=== PATIENT | female | born 1955 | race American Indian/Alaskan Native ===

== ENCOUNTER 2017-05-25 13:27 | Emergency (ER) | payer MEDICAID, OTHER ==
[2017-05-25 13:31] VITALS: BP 119/58
[2017-05-25 14:09] LABS: CHLORIDE,CL 102 mmol/L (101-111); SODIUM,NA 138 mmol/L (135-145)
--- NOTE | 2017-05-25 14:36 | EDM.PDOC ---
ED HPI GENERAL MEDICAL PROBLEM - General Chief Complaint: Chest Pain Stated Complaint: IN BY AMBULANCE Time Seen by Provider: 05/25/17 14:25 Source of Information: Reports: Patient History Limitations: Reports: No Limitations - History of Present Illness INITIAL COMMENTS - FREE TEXT/NARRATIVE: Patient presents to the ER via EMS from [facility] with complaints of chest pain, palpitations, shortness of breath, and lightheadedness. Patient states she first noticed the palpitations on Wednesday05/21/2017. She reports that she has had similar heart palpitations in the past "couple years" but they typically go away. She states that she has been lightheaded on and off since Wednesday. This morning she was more short of breath, prompting her to seek medical care. Onset: Other Onset Date: 05/21/17 Location: Reports: Chest Improves with: Reports: None Worsens with: Reports: Other (activity) Context: Reports: Activity Associated Symptoms: Reports: Shortness of Breath, Other (ligthheadedness) - Related Data Allergies Allergy/AdvReac Type Severity Reaction Status Date / Time latex Allergy Rash Verified 05/25/17 13:27 Home Meds: Home Meds metFORMIN HCl [Metformin HCl] 500 mg PO BID 02/28/16 [History] Aspirin [Halfprin] 81 mg PO ONETIME 05/25/17 [History] Calcium Citrate/Vitamin D3 [Calcium Citrate + D] 1 tab PO BIDMEALS 05/25/17 [ History] Glimepiride [Glimepiride] 4 mg PO DAILY 05/25/17 [History] Insulin Detemir [Levemir Flextouch] 25 units SQ QAM 05/25/17 [History] Loratadine 10 mg PO 05/25/17 [History] Multivit-Min/Iron Fum/Folic AC [Jysmy-Nymyhvd-Tgfatsbr Tablet] 1 tab PO DAILY [History] Omeprazole [Omeprazole] 20 mg PO DAILY 05/25/17 [History] Past Medical History Respiratory History: Reports: Other (See Below) Other Respiratory History: pulmonary hypertension Gastrointestinal History: Reports: GERD Musculoskeletal History: Reports: Arthritis Endocrine/Metabolic History: Reports: Diabetes, Type I Other Dermatologic History: scleroderma Social & Family History - Family History Family Medical History: Noncontributory - Tobacco Use Smoking Status *Q: Current Some Day Smoker Years of Tobacco use: 20 Packs/Tins Daily: 0.5 - Caffeine Use Caffeine Use: Reports: Coffee - Recreational Drug Use Recreational Drug Use: Yes Recreational Drug Type: Reports: Marijuana/Hashish Recreational Drug Use Frequency: Monthly - Living Situation & Occupation Living situation: Reports: with Family ED ROS GENERAL - Review of Systems Review Of Systems: ROS reveals no pertinent complaints other than HPI. ED EXAM, GENERAL - Physical Exam Exam: See Below Exam Limited By: No Limitations General Appearance: Alert, WD/WN, Mild Distress Head: Atraumatic, Normocephalic Neck: Normal Inspection, Supple, Non-Tender, Full Range of Motion Respiratory/Chest: No Respiratory Distress, Lungs Clear, Normal Breath Sounds, No Accessory Muscle Use, Chest Non-Tender Cardiovascular: Normal Peripheral Pulses, No Edema, No Gallop, No JVD, No Murmur , No Rub, Other (regularly irregular) GI/Abdominal: Normal Bowel Sounds, Soft, Non-Tender, No Organomegaly, No Distention, No Abnormal Bruit, No Mass (Female) Exam: Deferred Rectal (Female) Exam: Deferred Back Exam: Normal Inspection, Full Range of Motion, NT Extremities: Normal Inspection, Normal Range of Motion, Non-Tender, Normal Capillary Refill, No Pedal Edema Neurological: Alert, Oriented, CN II-XII Intact, Normal Cognition, Normal Gait, Normal Reflexes, No Motor/Sensory Deficits Psychiatric: Normal Affect, Normal Mood Skin Exam: Warm, Dry, Intact, Normal Color, No Rash Lymphatic: No Adenopathy Course - Vital Signs Last Recorded V/S: Last Vital Signs Temp 36.4 C 05/25/17 13:28 Pulse 62 05/25/17 13:28 Resp 12 05/25/17 13:28 BP 119/58 L 05/25/17 13:28 Pulse Ox 100 05/25/17 13:28 - Orders/Labs/Meds Orders: Active Orders 24 hr Category Date Time Status EKG Documentation Completion [RC] URGENT Care 05/25/17 13:30 Active Labs: Laboratory Tests 05/25/17 05/25/17 05/25/17 Range/Units 13:40 13:40 13:40 WBC 6.8 (5.0-10.0) 10^3/uL RBC 4.05 L (4.2-5.4) 10^6/uL Hgb 12.5 (12.0-16.0) g/dL Hct 38.2 (37.0-47.0) % MCV 94.3 (80-100) fL MCH 30.9 (27.0-34.0) pg MCHC 32.7 L (33.0-35.0) g/dL Plt Count 271 (150-450) 10^3/uL Neut % (Auto) 54.4 (42.2-75.2) % Lymph % (Auto) 33.5 (20.5-50.1) % Rains % (Auto) 8.3 H (2-8) % Eos % (Auto) 3.1 H (1.0-3.0) % Baso % (Auto) 0.7 (0.0-1.0) % D-Dimer, Quantitative < 100 (0-400) ng/mL Sodium 138 (135-145) mmol/L Potassium 4.1 (3.6-5.0) mmol/L Chloride 102 (101-111) mmol/L Carbon Dioxide 25.0 (21.0-31.0) mmol/L Anion Gap 15.1 BUN 12 (7-18) mg/dL Creatinine 0.7 (0.6-1.3) mg/dL Est Cr Clr Drug Dosing 68.44 mL/min Estimated GFR (MDRD) > 60 BUN/Creatinine Ratio 17.14 Glucose 320 H (74-105) mg/dL Calcium 9.1 (8.4-10.2) mg/dl Total Bilirubin 0.4 (0.2-1.0) mg/dL AST 22 (10-42) IU/L ALT 24 (10-60) IU/L Alkaline Phosphatase 82 (42-121) IU/L Troponin I < 0.02 (0.00-0.02) ng/ml Total Protein 7.1 (6.7-8.2) g/dl Albumin 4.3 (3.2-5.5) g/dl Globulin 2.8 Albumin/Globulin Ratio 1.54 - Re-Assessments/Exams Free Text/Narrative Re-Assessment/Exam: 05/25/17 14:59 Discussed the examination, EKG and lab results with Dr. Stanley (Cardiology with [facility] in [place]). Dr. Stanley advised to get a D-dimer level (if positive a CTA, if negative the patient should be seen by cardiology as an outpatient). The patient does have a history (according to the [facility] Records of Supraventricular Bigeminy). Departure - Departure Time of Disposition: 16:04 Disposition: Home, Self-Care 01 Condition: Fair Clinical Impression: Supraventricular bigeminy Instructions: Nonspecific Chest Pain, [id number] Forms: ED Department Discharge Care Plan Goals: Discussed the examination, lab, EKG and x-ray results with Dr. Stanley ( Cardiology with [facility] in [place]). Dr. Stanley advised to have the patient follow-up with cardiology on an outpatient basis as soon as possible. Dr. Kirkland ([facility]) was advised of the consult results during the patient's visit in the ED. If the patient has any additional symptoms or concerns, the patient should either return to the [facility] or return to the emergency department. - My Orders Last 24 Hours: My Active Orders 05/25/17 13:30 EKG Documentation Completion [RC] URGENT - Assessment/Plan Last 24 Hours: My Active Orders 05/25/17 13:30 EKG Documentation Completion [RC] URGENT
--- NOTE | 2017-05-26 16:33 | EKG ---
05/25/2017 - JOSÉ BENJAMIN I reviewed the EKG and agree with the machine's reading. [facility] /[id number]
== END 2017-05-25 16:20 | disposition home or self-care (01) ==
LOC: DL.ED 13:27
DX: I49.3 Ventricular premature depolarization (principal); K21.9 Gastro-esophageal reflux disease without esophagitis; M19.90 Unspecified osteoarthritis, unspecified site; E10.9 Type 1 diabetes mellitus without complications; F17.210 Nicotine dependence, cigarettes, uncomplicated; Z91.040 Latex allergy status; Z79.899 Other long term (current) drug therapy
CPT/HCPCS: 36415; 71010; 80053; 84484; 85025; 85379; 93005; 99285

== ENCOUNTER 2017-12-09 14:26 | Emergency (ER) | payer MEDICAID, OTHER ==
[2017-12-09 15:19] VITALS: BP 133/71
--- NOTE | 2017-12-09 15:26 | CR ---
Clinical history: 62-year-old female with swollen, discolored right small (pinky) toe. Interpretation: *Pronounced soft tissue swelling lateral aspect of the foot (fifth toe) and acute sli jose like, minimally displaced avulsion fracture off of the corner, distal end, of the proximal phalan x, right small toe. No sign of other right forefoot fracture or dislocation. No foreign bodies.
[2017-12-09] MEDS ORDERED: Acetaminophen/HYDROcodone 325-10 MG Tab PO ONE (15:48)
--- NOTE | 2017-12-09 16:14 | EDM.PDOC ---
Scribed by Lesly Aguilera 12/09/17 [id number] for Chuck Toro MD ED HPI GENERAL MEDICAL PROBLEM - General Chief Complaint: Lower Extremity Injury/Pain Stated Complaint: possible toe fx 12/09/17. [phone] Time Seen by Provider: 12/09/17 15:30 Source of Information: Reports: Patient, RN, RN Notes Reviewed History Limitations: Reports: No Limitations - History of Present Illness INITIAL COMMENTS - FREE TEXT/NARRATIVE: Patient presents with complaint of right 5th toe pain sustained this morning when she accidentally kicked the leg of her sofa. Denies any other injury. Onset: Today Location: Reports: Lower Extremity, Right Quality: Reports: Ache Severity: Severe Improves with: Reports: None Worsens with: Reports: None Associated Symptoms: Reports: No Other Symptoms Feet Pain Score (Numeric/FACES): 10 - Related Data Allergies Allergy/AdvReac Type Severity Reaction Status Date / Time latex Allergy Rash Verified 12/09/17 15:19 lactose AdvReac Mild not given Verified 12/09/17 15:19 Home Meds: Home Meds metFORMIN HCl [Metformin HCl] 500 mg PO TID 02/28/16 [History] Aspirin [Halfprin] 81 mg PO ONETIME 05/25/17 [History] Insulin Detemir [Levemir Flextouch] 40 units SQ QAM 05/25/17 [History] Loratadine 10 mg PO DAILY PRN 05/25/17 [History] Multivit-Min/Iron Fum/Folic AC [Xojax-Wokafrh-Owpwityu Tablet] 1 tab PO DAILY [History] Past Medical History HEENT History: Reports: None Cardiovascular History: Reports: None Respiratory History: Reports: Other (See Below) Other Respiratory History: pulmonary hypertension Gastrointestinal History: Reports: GERD Genitourinary History: Reports: None NUTRITION SERVICES MANAGER History: Reports: None Musculoskeletal History: Reports: Arthritis Neurological History: Reports: None Psychiatric History: Reports: None Endocrine/Metabolic History: Reports: Diabetes, Type II Hematologic History: Reports: None Immunologic History: Reports: None Oncologic (Cancer) History: Reports: None Other Dermatologic History: scleroderma, Social & Family History - Family History Family Medical History: Noncontributory - Tobacco Use Smoking Status *Q: Never Smoker Years of Tobacco use: 20 Packs/Tins Daily: 0.5 Second Hand Smoke Exposure: No - Caffeine Use Caffeine Use: Reports: Coffee, Tea - Recreational Drug Use Recreational Drug Use: No Recreational Drug Type: Reports: Marijuana/Hashish Recreational Drug Use Frequency: Monthly - Living Situation & Occupation Living situation: Reports: with Family Review of Systems - Review of Systems Review Of Systems: ROS reveals no pertinent complaints other than HPI. ED EXAM, GENERAL - Physical Exam Exam: See Below Exam Limited By: No Limitations General Appearance: Alert, WD/WN, No Apparent Distress Respiratory/Chest: No Respiratory Distress Cardiovascular: Normal Peripheral Pulses, Regular Rate, Rhythm, No Edema, No Gallop, No JVD, No Murmur, No Rub Back Exam: Normal Inspection, Full Range of Motion, NT Extremities: Other (right fifth toe swollen with diffuse generalized bruising, acutely tender to palpation. Skin is intact. ) Neurological: Alert, Oriented, CN II-XII Intact, Normal Cognition, Normal Gait, Normal Reflexes, No Motor/Sensory Deficits Psychiatric: Normal Affect, Normal Mood Course - Vital Signs Last Recorded V/S: Last Vital Signs Temp 35.9 C 12/09/17 15:16 Pulse 68 12/09/17 15:16 Resp 16 12/09/17 15:16 BP 133/71 12/09/17 15:16 Pulse Ox 99 12/09/17 15:16 - Orders/Labs/Meds Meds: Medications Discontinued Medications Generic Name Dose Route Start Last Admin Trade Name Jeffrey PRN Reason Stop Dose Admin Hydrocodone Bitart/Acetaminophen 1 tab 12/09/17 15:48 12/09/17 15:52 [place] 325-10 Mg PO 12/09/17 15:49 1 tab ONETIME ONE Administration - Radiology Interpretation Free Text/Narrative:: X-ray right fifth toe: Pronounced soft tissue swelling lateral aspect of the foot (fifth toe) and acute sliver like minimally displaced avulsion fracture off of the corner, distal end, of the proximal phalanx, right small toe. See rad report. Departure - Departure Time of Disposition: 15:48 Disposition: Home, Self-Care 01 Condition: Good Clinical Impression: Fracture of fifth toe, right, closed Qualifiers: Encounter type: initial encounter Qualified Code(s): S92.501A - Displaced unspecified fracture of right lesser toe(s), initial encounter for closed fracture - Discharge Information Instructions: Toe Fracture, Lnnp-st-Eynp Forms: ED Department Discharge Additional Instructions: RX: [place] 5mg/325mg. *DO NOT DRIVE while under the influence of this medication. Wear the rigid sole splint shoe for all weight bearing and angulation. Rest, ice and elevate right foot. Limit walking to reduce pain. Follow up in the next 1 to 2 weeks at [facility]. I have read and agree with the documentation that has been completed regarding this visit. By signing this record, I attest that the documentation was completed in my physical presence and is an accurate record of the encounter.
== END 2017-12-09 15:58 | disposition home or self-care (01) ==
LOC: DL.ED 14:26
DX: S92.511A Displaced fracture of proximal phalanx of right lesser toe(s), initial encounter for closed fracture (principal); I10 Essential (primary) hypertension; E11.9 Type 2 diabetes mellitus without complications; Z91.040 Latex allergy status; Z91.011 Allergy to milk products; Z79.899 Other long term (current) drug therapy; Z79.4 Long term (current) use of insulin; W22.03XA Walked into furniture, initial encounter
CPT/HCPCS: 73660; 99284; A9270

== ENCOUNTER 2019-10-11 05:20 | Day surgery (SDC) | payer MEDICAID, OTHER ==
[~2019-10-11 05:20] MED LIST: Dextrose 5%-0.45% NaCl 1,000 ML IV SCH; Sodium Chloride 0.9% 10 ML Syringe FLUSH PRN
[2019-10-11] MEDS ORDERED: Midazolam 1 MG/ML 2 ML SDV IV ONE ×3 (05:21→06:28)
[2019-10-11] MEDS ORDERED: fentaNYL 100 MCG/2 ML SDV IV ONE ×3 (05:21→06:27)
[2019-10-11] MEDS ORDERED: Midazolam 1 MG/ML 2 ML SDV ONE (06:14)
[2019-10-11] MEDS ORDERED: fentaNYL 100 MCG/2 ML SDV ONE (06:15)
[2019-10-11 08:45] VITALS: PULSE 70
[2019-10-11 09:38] VITALS: BP 95/49
--- NOTE | 2019-10-11 10:54 | LETTER ---
10/11/2019 Leon Hyde MD [facility] [address] [place] [address] RE: JOSÉ BENJAMIN Tonya : [address] Hyde: Ms. José Benjamin had esophagogastroduodenoscopy done this morning and she tolerated the procedure well. I herewith send a copy of the endoscopy note and photographs for your review. Thank you. Sincerely, [facility] /[id number]
--- NOTE | 2019-10-11 13:17 | OR ---
DATE: 10/11/2019 PROCEDURES: Esophagogastroduodenoscopy, narrow-band imaging, and multiple pinch biopsies. INSTRUMENT USED: [id number] Olympus video panendoscope. PREMEDICATIONS: No oral or topical anesthesia used. Fentanyl 100 mcg intravenous, Versed 2 mg intravenous. The procedure was done under pulse oximetry, BP recording, and stone processing machine operator. INDICATION: The patient with longstanding heartburn with persistent dyspepsia and abdominal pain also, unexplained and not responsive to medical measures, on PPI. Has known Potts's esophagus and requiring assessment as to dysplasia, H pylori status to be determined, small bowel biopsies to be taken for celiac disease if indicated, endoscopic hemostasis therapy if needed. PROCEDURE IN DETAIL: The scope was passed with ease. Adequate visualization of the esophagus was made from proximal to distal areas. No upper esophageal lesions identified. No distal esophageal stricture. No uphill or downhill esophageal varices. No Yadira-Beckwith tear. Grade A erosive changes were noted by Wilson criteria. No esophageal polyp or tumor mass identified. 4- quadrant biopsies were taken from the proximally encroaching pink columnar epithelium at 36 and 38 cm distal to the oral verge, and sent for histopathologic evidence of intestinal metaplasia as well as dysplasia. No proximal gastric varices noted. Gastric fundus examination by retroflexion showed no polypoid lesions. No gastric ulcer, malignant mass, or vascular ectasia identified. In the proximal antrum, diminutive benign-appearing polyp was noted, NBI views were obtained, photographs were taken, multiple pinch biopsies were obtained and sent for histopathology. Multiple pinch biopsies were also obtained from the gastric antrum and proximal body and sent for PyloriTek test for H pylori and histopathology. Duodenal bulb showed no ulcer. Visualized second part of the duodenum was unremarkable. Multiple pinch biopsies, 4 in number were taken from different areas of the second part of the duodenum, and tissues were also obtained from the duodenal bulb at 9 o'clock and 12 o'clock positions and sent for any histopathologic evidence of celiac disease. No bleeding was noted from any of the visualized areas at the completion of examination. Photographs were taken of the duodenal bulb, gastric antrum, fundus, and distal esophagus. IMPRESSION: 1. Grade A gastroesophageal reflux disease. 2. Gastric antral polyp. The patient tolerated the procedure well. [facility] /[id number]
== END 2019-10-11 09:50 | disposition home or self-care (01) ==
LOC: DL.ENDO 05:20
PROVIDERS: ATTEND Internal Medicine Gastroenterology
DX: K21.9 Gastro-esophageal reflux disease without esophagitis (principal); K31.7 Polyp of stomach and duodenum; K22.70 Barrett's esophagus without dysplasia; K27.9 Peptic ulcer, site unspecified, unspecified as acute or chronic, without hemorrhage or perforation; E11.9 Type 2 diabetes mellitus without complications; I10 Essential (primary) hypertension; E78.5 Hyperlipidemia, unspecified; M54.5 Low back pain; F17.210 Nicotine dependence, cigarettes, uncomplicated; F12.90 Cannabis use, unspecified, uncomplicated; Z79.899 Other long term (current) drug therapy; Z79.82 Long term (current) use of aspirin
CPT/HCPCS: 43239; 87077; J2250; J3010; J7042

== ENCOUNTER 2020-04-13 11:34 | Emergency (ER) | payer MEDICAID, OTHER ==
[2020-04-13 11:41] VITALS: BP 101/84; PULSE 65
[2020-04-13] MEDS ORDERED: GI Cocktail Oral Solution 30 ML PO ONE (11:58)
--- NOTE | 2020-04-13 12:05 | EDM.PDOC ---
Scribed by Lesly Aguilera 04/13/20 1205 for Chuck Toro MD ED HPI GENERAL MEDICAL PROBLEM - General Chief Complaint: Gastrointestinal Problem Stated Complaint: [id number] GERD Time Seen by Provider: 04/13/20 11:48 Source of Information: Reports: Patient, RN, RN Notes Reviewed History Limitations: Reports: No Limitations - History of Present Illness INITIAL COMMENTS - FREE TEXT/NARRATIVE: Patient arrives to ED by POV with complaint of GERD. She had an upper endoscopy by Dr. Cohen in October which showed acid reflux. No ulcer. Pt states she has been eating spicy foods, milkshakes, and soda pop. Onset: Other (chronic) Duration: Constant Location: Reports: Other (GERD) Quality: Reports: Ache Severity: Moderate Improves with: Reports: None Worsens with: Reports: None Associated Symptoms: Reports: No Other Symptoms Epigastric Pain Score (Numeric/FACES): 8 - Related Data Allergies Allergy/AdvReac Type Severity Reaction Status Date / Time latex Allergy Rash Verified 04/13/20 11:52 lactose AdvReac Mild not given Verified 04/13/20 11:52 Home Meds: Home Meds metFORMIN HCl [Metformin HCl] 500 mg PO BID 02/28/16 [History] Insulin Detemir [Levemir Flextouch] 20 units SQ DAILY 05/25/17 [History] Loratadine 10 mg PO DAILY PRN 05/25/17 [History] Multivit-Min/Iron Fum/Folic AC [Rdoqx-Fiajisc-Owyngewg Tablet] 1 tab PO DAILY 05/25/17 [History] Esomeprazole [NexIUM] 40 mg PO DAILY 01/24/18 [History] Glimepiride 4 mg PO ACBREAKFAST 01/24/18 [History] Ibuprofen 800 mg PO Q6H PRN 01/24/18 [History] Nut.tx.gluc Intol,Lf,Soy/Fiber [Boost Glucose Control Liquid] 1 bottle PO DAILY 02/01/18 [History] Past Medical History HEENT History: Reports: None Cardiovascular History: Reports: Arrhythmia, High Cholesterol, Hypertension Respiratory History: Reports: TB, Other (See Below) Other Respiratory History: 1992 pulmonary hypertension Gastrointestinal History: Reports: Colon Polyp, GERD, Other (See Below) Other Gastrointestinal History: HX OF POWELL'S ESOPHAGUS Genitourinary History: Reports: None ACID FILLER History: Reports: None Musculoskeletal History: Reports: Arthritis, Fracture, Neck Pain, Chronic, Osteoporosis Neurological History: Reports: None, Other (See Below) Other Neuro History: HX OF RAYNAUD'S DISEASE Psychiatric History: Reports: None Endocrine/Metabolic History: Reports: Diabetes, Type II, Osteoporosis Hematologic History: Reports: None Immunologic History: Reports: None Oncologic (Cancer) History: Reports: None Dermatologic History: Reports: Other (See Below) Other Dermatologic History: scleroderma,. HX OF CREST SYNDROME - Infectious Disease History Infectious Disease History: Reports: TB - Past Surgical History HEENT Surgical History: Reports: None Cardiovascular Surgical History: Reports: None GI Surgical History: Reports: Colonoscopy, EGD, Polypectomy Musculoskeletal Surgical History: Reports: Carpal Tunnel, Other (See Below) Other Musculoskeletal Surgeries/Procedures:: S/P ORIF OF LEFT FINGER Social & Family History - Family History Family Medical History: Noncontributory - Caffeine Use Caffeine Use: Reports: Coffee, Tea Caffeine Use Comment: 2 cups coffee daily - Living Situation & Occupation Living situation: Reports: with Family ED ROS GENERAL - Review of Systems Review Of Systems: Comprehensive ROS is negative, except as noted in HPI. ED EXAM, GI/ABD - Physical Exam Exam: See Below Exam Limited By: No Limitations General Appearance: Alert, WD/WN, No Apparent Distress Head: Atraumatic, Normocephalic Neck: Normal Inspection Respiratory/Chest: No Respiratory Distress, Lungs Clear, Normal Breath Sounds, No Accessory Muscle Use, Chest Non-Tender Cardiovascular: Normal Peripheral Pulses, Regular Rate, Rhythm, No Edema, No Gallop, No JVD, No Murmur, No Rub GI/Abdominal Exam: Normal Bowel Sounds, No Organomegaly, No Distention, No Mass, Tender (epigastrium). No: Guarding, Rigid, Rebound Neurological: Alert, Oriented, No Motor/Sensory Deficits Psychiatric: Normal Affect, Normal Mood Skin Exam: Warm, Dry, Intact, Normal Color, No Rash Course - Vital Signs Last Recorded V/S: Last Vital Signs Temp 97.4 F 04/13/20 11:40 Pulse 65 04/13/20 11:40 Resp 16 04/13/20 11:40 BP 101/84 04/13/20 11:40 Pulse Ox 100 04/13/20 11:40 - Orders/Labs/Meds Orders: Active Orders 24 hr Category Date Time Status Blood Glucose Check, Bedside [RC] ONETIME Care 04/13/20 11:48 Active Meds: Medications Discontinued Medications Generic Name Dose Route Start Last Admin Trade Name Jeffrey PRN Reason Stop Dose Admin Al Hydroxide/Mg Hydroxide 30 ml 04/13/20 11:58 Gi Cocktail PO 04/13/20 11:59 ONETIME ONE Departure - Departure Time of Disposition: 12:03 Disposition: Home, Self-Care 01 Condition: Good Clinical Impression: Acid reflux Qualifiers: Esophagitis presence: with esophagitis Qualified Code(s): K21.0 - Gastro- esophageal reflux disease with esophagitis - Discharge Information *PRESCRIPTION DRUG MONITORING PROGRAM REVIEWED*: Not Applicable *COPY OF PRESCRIPTION DRUG MONITORING REPORT IN PATIENT LENORA: Not Applicable Instructions: Food Choices for Gastroesophageal Reflux Disease, Adult, Gastroesophageal Reflux Disease, Adult Forms: ED Department Discharge Additional Instructions: Rx: Carafate 1g Continue Nexium as prescribed. Follow up in clinic with Dr. Cohen if not improving in 5 days. Sepsis Event Note (ED) - Evaluation Sepsis Screening Result: No Definite Risk - Focused Exam Vital Signs: Vital Signs Temp Pulse Resp BP Pulse Ox 04/13/20 11:40 97.4 F 65 16 101/84 100 - My Orders Last 24 Hours: My Active Orders 04/13/20 11:48 Blood Glucose Check, Bedside [RC] ONETIME - Assessment/Plan Last 24 Hours: My Active Orders 04/13/20 11:48 Blood Glucose Check, Bedside [RC] ONETIME I have read and agree with the documentation that has been completed regarding this visit. By signing this record, I attest that the documentation was completed in my physical presence and is an accurate record of the encounter.
== END 2020-04-13 12:09 | disposition home or self-care (01) ==
LOC: DL.ED 11:34
DX: K21.0 Gastro-esophageal reflux disease with esophagitis (principal); I10 Essential (primary) hypertension; E11.9 Type 2 diabetes mellitus without complications; Z79.4 Long term (current) use of insulin; Z79.899 Other long term (current) drug therapy; Z91.040 Latex allergy status; Z91.011 Allergy to milk products
CPT/HCPCS: 82962; 99284; A9270; 99283